=== PATIENT | male | born 2005 | race Caucasian/White ===

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

== ENCOUNTER 2023-09-24 09:41 | Emergency (ER) | payer OTHER ==
[2023-09-24 09:57] VITALS: BP 120/68; PULSE 87
[2023-09-24] MEDS ORDERED: Lidocaine 0.5% 50 ML SDV INFILT ONE (10:06)
[2023-09-24] MEDS: Lidocaine 1% 10 ML MDV INJECT ONE (10:18)
[2023-09-24] MEDS: Diphtheria,Pertussis(Acell),Tetanus Vaccine 0.5 ML Syringe IM ONE (10:18)
== END 2023-09-24 10:57 | disposition home or self-care (01) ==
LOC: VM.ED 09:41
DX: S61.012A Laceration without foreign body of left thumb without damage to nail, initial encounter (principal); Z23 Encounter for immunization; X58.XXXA Exposure to other specified factors, initial encounter; Y92.89 Other specified places as the place of occurrence of the external cause; Y99.0 Civilian activity done for income or pay
CPT/HCPCS: 12001; 73140-FA; 90471; 90715; 99283; 99283-25; J3490